=== PATIENT | female | born 1955 | race Caucasian/White ===

== ENCOUNTER 2018-08-07 10:29 | Emergency (ER) | payer BC ==
[2018-08-07] MEDS ORDERED: Ketorolac INJ* 30 MG/ML 1 ML VIAL IM ONE (10:49)
[2018-08-07] MEDS ORDERED: Cyclobenzaprine TAB* 10 MG PO ONE (10:49)
--- NOTE | 2018-08-07 10:55 | ED ---
Back Pain - HPI Summary HPI Summary: 62 year old female presents with back pain since this morning. She states she is trying to lift a cabinet and felt a pop in her back. She did have back pain last month. No urinary symptoms. No fevers. No loss of bladder or bowel or saddle anaesthesia. No pain or weakness into her legs. No numbness or tingling. she was able to ambulate into ED with a steady gait. no abdominal pain. no chest pain or SOB. Hasn't taking anything for pain. - History of Current Complaint Chief Complaint: EDBackInjuryPain Stated Complaint: BACK PAIN/HEARD SNAP Time Seen by Provider: 08/07/18 10:43 Pain Intensity: 8 - Allergies/Home Medications Allergies/Adverse Reactions: Allergies Allergy/AdvReac Type Severity Reaction Status Date / Time No Known Allergies Allergy Verified 08/07/18 10:37 PMH/Surg Hx/FS Hx/Imm Hx Endocrine/Hematology History: Reports: Hx Diabetes Cardiovascular History: Reports: Hx Hypertension Respiratory History: Reports: Hx Chronic Obstructive Pulmonary Disease (COPD) Musculoskeletal History: Denies: Hx Osteoporosis - Immunization History Date of Influenza Vaccine: this season Infectious Disease History: No Infectious Disease History: Denies: Traveled Outside the [place] in Last 30 Days - Family History Known Family History: Positive: Diabetes Family History: No FHx of breast cancer. - Social History Alcohol Use: Occasionally Substance Use Type: Reports: Marijuana Smoking Status (MU): Heavy Every Day Tobacco Smoker Review of Systems Negative: Fever Negative: Chest Pain Negative: Shortness Of Breath Positive: Myalgia - back pain All Other Systems Reviewed And Are Negative: Yes Physical Exam Triage Information Reviewed: Yes Vital Signs On Initial Exam: Initial Vitals Temp Pulse Resp BP Pulse Ox 97.6 F 62 18 160/63 98 08/07/18 10:32 08/07/18 10:32 08/07/18 10:32 08/07/18 10:32 08/07/18 10:32 Vital Signs Reviewed: Yes Appearance: Positive: Well-Appearing Skin: Positive: Warm, Dry Head/Face: Positive: Normal Head/Face Inspection Eyes: Positive: Normal, Conjunctiva Clear ENT: Positive: Pharynx normal Respiratory/Lung Sounds: Positive: Clear to Auscultation, Breath Sounds Present Cardiovascular: Positive: Normal, RRR Abdomen Description: Positive: Nontender, Soft Bowel Sounds: Positive: Present Musculoskeletal: Positive: Limited @ - back, Other - tenderness lower back, neg SLR, sensation grossly intact, good pulses Neurological: Positive: Normal Gait, Babinski Bilateral - normal Psychiatric: Positive: Normal Diagnostics - Vital Signs Vital Signs Temp Pulse Resp BP Pulse Ox 08/07/18 10:32 97.6 F 62 18 160/63 98 - Laboratory Lab Statement: Any lab studies that have been ordered have been reviewed, and results considered in the medical decision making process. - CT back CT Interpretation: Positive (See Comments) - IMPRESSION: OSTEOPENIA WITH COMPRESSION FRACTURE OF T12, LIKELY ACUTE/SUBACUTE, WITHOUT OSSEOUS RETROPULSION. CT Interpretation Completed By: Radiologist Re-Evaluation - Re-Evaluation First Eval Re-Evaluation Time: 11:52 Change: Improved Comment: pain has improved Back Pain Course/Dx - Course Course Of Treatment: 62 year old female presents with back pain since this morning. She states she is trying to lift a cabinet and felt a pop in her back. She did have back pain last month. No urinary symptoms. No fevers. No loss of bladder or bowel or saddle anaesthesia. No pain or weakness into her legs. No numbness or tingling. she was able to ambulate into ED with a steady gait. Hasn't taking anything for pain. On exam tenderness lower back. Neurovascular intact. CT shows acute/subacute compression fracture of T12 without retropulsion. this is not were patient pain is as it located on L3-L5. discussed with patient and she did have pain here a month ago. discussed should follow up with primary about osteopenia and back pain. gave referral to neurosurgery as can follow up outpatient will neurosurgery as no neuro symptoms and no retropulsion. will place on short course of muscle relaxers. patient understand and agrees with plan. - Diagnoses Differential Diagnosis/HQI/PQRI: Positive: Fracture, Herniated Disc, Strain Provider Diagnoses: Back pain, Compression fracture of T12 vertebra Discharge - Sign-Out/Discharge Documenting (check all that apply): Patient Departure - Discharge Plan Condition: Good Disposition: HOME Prescriptions: Cyclobenzaprine TAB* [Flexeril 10 MG TAB*] 10 mg PO TID PRN #21 tab PRN Reason: Pain Patient Education Materials: Back Pain (ED) Forms: *Work Release Referrals: Alex Monroe MD [Primary Care Provider] - Adeel Kaplan MD [Medical Doctor] - Additional Instructions: Take muscle relaxers three times a day Use ibuprofen or Tylenol for pain every 6 hours ice/heat area, move as much as possible Follow up with primary within 5 days follow up with neurosurgery Return to ED if develop any new or worsening symptoms - Billing Disposition and Condition Condition: GOOD Disposition: Home
--- NOTE | 2018-08-07 11:38 | RAD ---
HISTORY: lower back pain COMPARISONS: CT of the chest dated January 31, 2017 TECHNIQUE: Multiple contiguous axial CT scans were obtained of the lumbar spine without intravenous contrast, with coronal and sagittal multiplanar reformations. FINDINGS: SPINAL CANAL: Evaluation of the central canal is limited on CT technique; however, there is no obvious canalicular mass or epidural hemorrhage. ALIGNMENT: The alignment is normal. VERTEBRAL BODIES: There is diffuse osteopenia. There is a compression deformity of T12 with approximately 50% loss of vertebral body height. There is no significant osseous retropulsion. This is new from the hip September 11, 2017 examination and is likely acute/subacute. JOINTS: There is mild facet osteoarthritis, more pronounced at L5-S1. MUSCULATURE: Unremarkable INTERVERTEBRAL DISCS: There is diffuse loss of intervertebral disc height throughout the spine. AXIAL IMAGES: On axial images, there is no osseous neural foraminal narrowing or central canal stenosis. SOFT TISSUES: The visualized soft tissues of the abdomen are unremarkable. OTHER: None IMPRESSION: OSTEOPENIA WITH COMPRESSION FRACTURE OF T12, LIKELY ACUTE/SUBACUTE, WITHOUT OSSEOUS RETROPULSION.
[2018-08-07] MEDS ORDERED: oxyCODONE/Acetamin 5/325 MG* TAB PO ONE (11:48)
[2018-08-07 12:13] VITALS: BP 153/91
== END 2018-08-07 12:11 | disposition home or self-care (01) ==
LOC: ED 10:29
DX: S22.080A Wedge compression fracture of T11-T12 vertebra, initial encounter for closed fracture (principal); X50.0XXA Overexertion from strenuous movement or load, initial encounter; Y92.9 Unspecified place or not applicable; Z72.0 Tobacco use; E11.9 Type 2 diabetes mellitus without complications; I10 Essential (primary) hypertension; J44.9 Chronic obstructive pulmonary disease, unspecified; M85.88 Other specified disorders of bone density and structure, other site
CPT/HCPCS: 72131; 96372; 99282; A9270-GY; J1885

== ENCOUNTER 2018-08-09 09:00 | Emergency (ER) | payer BC ==
--- NOTE | 2018-08-09 09:50 | ED ---
Back Pain - HPI Summary HPI Summary: Pt. is a 62 y.o female who presents to the ER for ongoing low back pain x 2 days. Pt. was seen in ED 2 days ago after developing low back pain while moving a heavy piece of furniture. She had a ct scan of lumbar spine which showed old vs new t compression fx. Pt.'s pain is low lumbar. Pt. states she has been talking motrin and flexeril with no improvement. SHe denies radicular pain into legs, numbness, tingling, or weakness. Denies bowel or bladder incontinence or retention. Sxs are mild in severity. Movement makes sxs worse. Nothing makes sxs better. - History of Current Complaint Chief Complaint: EDBackInjuryPain Stated Complaint: BACK PAIN Time Seen by Provider: 08/09/18 09:32 Hx Obtained From: Patient Pain Intensity: 8 - Allergies/Home Medications Allergies/Adverse Reactions: Allergies Allergy/AdvReac Type Severity Reaction Status Date / Time No Known Allergies Allergy Verified 08/09/18 09:07 PMH/Surg Hx/FS Hx/Imm Hx Previously Healthy: Yes Endocrine/Hematology History: Reports: Hx Diabetes Cardiovascular History: Reports: Hx Hypertension Respiratory History: Reports: Hx Chronic Obstructive Pulmonary Disease (COPD) Musculoskeletal History: Denies: Hx Osteoporosis - Immunization History Date of Influenza Vaccine: this season Infectious Disease History: No Infectious Disease History: Denies: Traveled Outside the [place] in Last 30 Days - Family History Known Family History: Positive: Diabetes Family History: No FHx of breast cancer. - Social History Occupation: Employed Full-time Lives: Alone Alcohol Use: Occasionally Substance Use Type: Reports: Marijuana Smoking Status (MU): Heavy Every Day Tobacco Smoker Review of Systems Constitutional: Negative Cardiovascular: Negative Respiratory: Negative Genitourinary: Negative Positive: Other - low back pain Neurological: Negative All Other Systems Reviewed And Are Negative: Yes Physical Exam Triage Information Reviewed: Yes Vital Signs On Initial Exam: Initial Vitals Temp Pulse Resp BP Pulse Ox 97.3 F 83 16 131/101 98 08/09/18 09:03 08/09/18 09:03 08/09/18 09:03 08/09/18 09:03 08/09/18 09:03 Vital Signs Reviewed: Yes Appearance: Positive: Well-Appearing - Pt. sitting on side on side of bed in NAD > Skin: Positive: Warm, Dry Head/Face: Positive: Normal Head/Face Inspection Eyes: Positive: Normal, EOMI Neck: Positive: Supple Musculoskeletal: Positive: Other - 5/5 strength in bilateral LEs with flexion and doriflexion 2/4 DTR. No reproducible back pain on palpation. Ambulating without difficulty. Neurological: Positive: Normal, CN Intact II-III Psychiatric: Positive: Affect/Mood Appropriate Diagnostics - Vital Signs Vital Signs Temp Pulse Resp BP Pulse Ox 08/09/18 09:03 97.3 F 83 16 131/101 98 - Laboratory Lab Statement: Any lab studies that have been ordered have been reviewed, and results considered in the medical decision making process. Back Pain Course/Dx - Course Course Of Treatment: Pt. presenting for ongoing low back pain after injury. She has no neuro deficits or evidence of cauda equina syndrome. [employer] reviewed and no red flags noted. WIll rx a few days of lortab. To heat back and avoid heavy lifting. Can continue other med as directed. To call PCP today for a f.u apt. TO return to ER if sxs change or worsen. - Diagnoses Differential Diagnosis/HQI/PQRI: Positive: Aneurysm, Arthritis, Cauda Equina Syndrome, Compressive Cord Syndrome, Epidural Abscess, Herniated Disc, Strain, Sprain Provider Diagnoses: Lumbar strain Discharge - Sign-Out/Discharge Documenting (check all that apply): Patient Departure - Discharge Plan Condition: Good Disposition: HOME Prescriptions: Hydrocodone/Acetaminophen [Hydrocodone-Acetamin 5-325 mg] 1 each PO Q6H #12 tablet MDD 4tablets Patient Education Materials: Low Back Strain (ED) Referrals: Alex Monroe MD [Primary Care Provider] - Additional Instructions: Schedule a follow up appointment with PCP for Monday Apply warm compresses to back Pain medication as directed Can continue ibuprofen and flexeril as directed Avoid heavy lifting Return to ER for increased pain, numbness/tingling/weakness in legs, or loss of bowel or bladder function - Billing Disposition and Condition Condition: GOOD Disposition: Home
[2018-08-09 10:01] VITALS: BP 148/88
== END 2018-08-09 10:00 | disposition home or self-care (01) ==
LOC: ED 09:00
DX: S39.012D Strain of muscle, fascia and tendon of lower back, subsequent encounter (principal); X50.0XXD Overexertion from strenuous movement or load, subsequent encounter; F17.200 Nicotine dependence, unspecified, uncomplicated
CPT/HCPCS: 99282

== ENCOUNTER 2018-10-07 10:29 | Emergency (ER) | payer BC ==
--- NOTE | 2018-10-07 10:48 | ED ---
Neck Pain - HPI Summary HPI Summary: 62 yo F with left neck pain radiating to left trapezius since 10/04/18 after lifting and positioning a pt at [employer] at work. Did not feel a pop or snap. No numbness or arm weakness. No URI sxs, no LOPEZ, dizziness, or fever. No prior neck injury or problem. Tried ibuprofen and flexeril without relief. Has used oxycodone in the past for back pain. Pt took a bus to get here. - History of Current Complaint Chief Complaint: EDNeckComplaint Stated Complaint: NECK PAIN Time Seen by Provider: 10/07/18 10:45 Hx Obtained From: Patient Onset/Duration Of Injury/Symptoms: Days - 3 Mechanism Of Injury: Other - lifting/positioning/ assisting heavy resident at [employer] at work Timing: Constant Onset/Duration: Sudden Onset, Started days ago, Worse Since - this am Severity Initially: Moderate Severity Currently: Moderate Pain Intensity: 4 Pain Scale Used: 0-10 Numeric Location: Discrete At: - left lower neck and left trapezius Character: Sharp Aggravating Factors: Movement Alleviating Factors: Nothing Associated Signs & Symptoms: Negative: Swelling, Redness, Bruising, Fever, Nuchal Rigity, Weakness, Headache, Paresthesia - Allergies/Home Medications Allergies/Adverse Reactions: Allergies Allergy/AdvReac Type Severity Reaction Status Date / Time No Known Allergies Allergy Verified 10/07/18 10:59 Home Medications: Home Medications Cholecalciferol TAB* [Vitamin D TAB*] 1,000 unit PO DAILY 10/07/18 [History Confirmed 10/07/18] PMH/Surg Hx/FS Hx/Imm Hx Previously Healthy: No Endocrine/Hematology History: Reports: Hx Diabetes Cardiovascular History: Reports: Hx Hypertension Respiratory History: Reports: Hx Chronic Obstructive Pulmonary Disease (COPD) GI History: Reports: Hx Gastroesophageal Reflux Disease Musculoskeletal History: Denies: Hx Osteoporosis - Surgical History Surgery Procedure, Year, and Place: None Infectious Disease History: No Infectious Disease History: Denies: Traveled Outside the [place] in Last 30 Days - Family History Known Family History: Positive: Diabetes Family History: No FHx of breast cancer. - Social History Occupation: Employed Full-time Alcohol Use: Occasionally Substance Use Type: Reports: Marijuana Smoking Status (MU): Light Every Day Tobacco Smoker Review of Systems Constitutional: Negative Cardiovascular: Negative Respiratory: Negative Gastrointestinal: Negative Positive: no symptoms reported Positive: Arthralgia, Myalgia Skin: Negative Neurological: Negative Psychological: Normal All Other Systems Reviewed And Are Negative: Yes Physical Exam Triage Information Reviewed: Yes Vital Signs On Initial Exam: Initial Vitals Temp Pulse Resp BP Pulse Ox 98.7 F 92 16 172/84 99 10/07/18 10:39 10/07/18 10:39 10/07/18 10:39 10/07/18 10:39 10/07/18 10:39 Vital Signs Reviewed: Yes Appearance: Positive: Well-Appearing, Well-Nourished, Pain Distress Skin: Positive: Warm, Skin Color Reflects Adequate Perfusion, Dry Head/Face: Positive: Normal Head/Face Inspection Eyes: Positive: EOMI, Conjunctiva Clear ENT: Positive: Normal ENT inspection, Hearing grossly normal. Negative: Nasal congestion, Nasal drainage Neck: Positive: Supple, Nontender - no spinal tenderness, tenderness left paraspinous and left trapezius, No Lymphadenopathy Respiratory/Lung Sounds: Positive: Clear to Auscultation, Breath Sounds Present Cardiovascular: Positive: RRR, Pulses are Symmetrical in both Upper and Lower Extremities Musculoskeletal: Positive: Strength/ROM Intact, Pain @ - left cervical paraspinous and left trapezius Neurological: Positive: Sensory/Motor Intact, Alert, Oriented to Person Place, Time, NV Bundle Intact Distally, Facial Symmetry, Speech Normal. Negative: Facial Droop, Focal Deficit @, Slurred Speech, Pronator Drift Present Psychiatric: Positive: Normal - [place] Coma Scale Best Eye Response: 4 - Spontaneous Best Motor Response: 6 - Obeys Commands Best Verbal Response: 5 - Oriented Coma Scale Total: 15 Diagnostics - Vital Signs Vital Signs Temp Pulse Resp BP Pulse Ox 10/07/18 10:39 98.7 F 92 16 172/84 99 - Laboratory Lab Statement: Any lab studies that have been ordered have been reviewed, and results considered in the medical decision making process. - CT CT cervical spine CT Interpretation Completed By: Radiologist Summary of CT Findings: IMPRESSION: 1. DEGENERATIVE DISC DISEASE AND OSTEOARTHRITIS. 2. THERE IS MILD NARROWING OF THE CENTRAL CANAL AT C6-C7. 3. THERE IS MULTILEVEL NEUROFORAMINAL NARROWING DESCRIBED ABOVE. 4. 1.9 CM LEFT THYROID NODULE. THE [employer] INCIDENTAL THYROID. FINDINGS COMMITTEE RECOMMENDS THYROID ULTRASOUND FOR INCIDENTAL NONSUSPICIOUS THYROID. NODULES GREATER THAN OR EQUAL TO 1.5 CM IN SIZE FOR THE PATIENT OVER THE AGE OF 35. Re-Evaluation - Re-Evaluation First Eval Re-Evaluation Time: 12:00 Change: Improved Comment: Pain is improved after percocet. Agrees to discharge. Declines work release. Notified of need for thyroid ultrasound due to thyroid nodule. Given copy of CT report. Neck Course/Dx - Diagnoses Differential Dx/HQI/PQRI: Positive: Arthritis, Neoplasm, Sprain, Strain, Torticollis Provider Diagnoses: Neuroforaminal stenosis of cervical spine, Osteoarthritis cervical spine, Cervical strain, acute, Thyroid nodule, Hypertension, poor control Discharge - Sign-Out/Discharge Documenting (check all that apply): Patient Departure - home - Discharge Plan Condition: Stable Disposition: HOME Prescriptions: Cyclobenzaprine TAB* [Flexeril 10 MG TAB*] 10 mg PO TID PRN #20 tab PRN Reason: Pain oxyCODONE/Acetamin 5/325 MG* [Percocet 5/325 TAB*] 1 tab PO Q4H PRN #18 tab MDD 6 PRN Reason: Pain Patient Education Materials: Cervical Strain (ED), Thyroid Nodules (ED), Acute Neck Pain (ED) Referrals: Alex Monroe MD [Primary Care Provider] - 2 Days Additional Instructions: We have given you a copy of the CT of your neck. It does show cause for your pain, but no acute abnormality that needs emergency treatment. The CT also showed a thyroid nodule. It is recommended that you have an ultrasound of your thyroid to further evaluate this. Dr. Monroe will need to order this for you in the next 1-2 weeks, and do any further evaluation necessary of the thyroid nodule. You were given percocet 2 tabs with some relief of your pain. Dr. Chester has prescribed percocet and flexeril that you may continue to use for the pain. The percocet is at [facility] and the flexeril is at [facility] , at your request. Return to the ER if you have new or worsening symptoms. - Billing Disposition and Condition Condition: STABLE Disposition: Home
[2018-10-07] MEDS ORDERED: oxyCODONE/Acetamin 5/325 MG* TAB PO ONE (11:05)
[2018-10-07] MEDS ORDERED: Lidocaine PATCH 5%* 1 PATCH ONE (11:20)
[2018-10-07] MEDS ORDERED: Lidocaine PATCH 5%* 1 PATCH TRANSDERM SCH (12:00)
[2018-10-07 12:31] VITALS: BP 138/93
[2018-10-07] MEDS ORDERED: Lidocaine Patch REMOVE* 1 NOTE MISC SCH (21:00)
== END 2018-10-07 12:30 | disposition home or self-care (01) ==
LOC: ED 10:29
DX: S16.1XXA Strain of muscle, fascia and tendon at neck level, initial encounter (principal); M48.02 Spinal stenosis, cervical region; I10 Essential (primary) hypertension; E04.1 Nontoxic single thyroid nodule; E11.9 Type 2 diabetes mellitus without complications; J44.9 Chronic obstructive pulmonary disease, unspecified; X50.9XXA Other and unspecified overexertion or strenuous movements or postures, initial encounter; Y93.F2 Activity, caregiving, lifting; Y92.89 Other specified places as the place of occurrence of the external cause; Y99.0 Civilian activity done for income or pay; K21.9 Gastro-esophageal reflux disease without esophagitis; Z72.0 Tobacco use
CPT/HCPCS: 72125; 99282; A9270-GY

== ENCOUNTER 2022-11-22 10:58 | Inpatient (IN) ==
[2022-11-22 12:24] LABS: ABS Basophils 0.1 10^3/ul (0-0.2); ABS Eosinophils 0.1 10^3/ul (0-0.6); ABS Lymphocytes 2.4 10^3/ul (1.0-4.8); ABS Monocytes 0.6 10^3/ul (0-0.8); ABS Neutrophils 6.1 10^3/ul (1.5-7.7); Eosinophil % 1.2 %; Hematocrit 39 % (35-47); Lymphocyte % 26.1 %; Mean Corpuscular HGB Conc 34 g/dL (31-36); Mean Corpuscular Hemoglobin 31 pg (27-31); Mean Corpuscular Volume 91 fL (80-97); Mean Platelet Volume 8.4 fL (7.4-10.4); Nucleated Red Blood Cells % 0.1; Platelet Count 322 10^3/uL (150-450); Red Blood Count 4.24 10^6 /uL (3.70-4.87); Red Cell Distribution Width 15 % (10-15); White Blood Count 9.3 10^3/uL (3.5-10.8)
[2022-11-22 12:51] LABS: Albumin/Globulin Ratio 1.9 (1-3); Calcium 9.4 mg/dL (8.6-10.3); Creatinine, Serum 0.83 mg/dL (0.51-0.95); Globulin 2.1 g/dL (2-4); Total Bilirubin 0.5 mg/dL (0.2-1.0); Total Protein 6.1 g/dL (6.4-8.9); eGFR CKD-EPI 77.7 (>60)
[2022-11-22 13:02] LABS: TSH Ultra Thyroid Stim Horm 1.93 mcIU/mL (0.34-5.60)
[2022-11-22] MEDS ORDERED: Dextrose 50% Syringe 50 ml 25 GM/50 ML SYRINGE IV PUSH PRN (14:55)
[2022-11-22] MEDS ORDERED: Albuterol HFA INHALER 8 gm MDI INH PRN (14:59)
[2022-11-22 18:55] LABS: Urine Appearance Clear; Urine Bilirubin Negative (Negative); Urine Blood Negative (Negative); Urine Color Yellow; Urine Glucose Negative (Negative); Urine Ketones Negative (Negative); Urine Nitrite Negative (Negative); Urine Protein Negative (Negative); Urine Specific Gravity 1.006 (1.002-1.030); Urine Urobilinogen Negative (Negative)
[2022-11-22] MEDS ORDERED: Enoxaparin 40 MG/0.4 ML SYR SUBCUT SCH (19:00)
[2022-11-22 19:20] LABS: Urine Bacteria Absent (Absent); Urine Red Blood Cell Trace(0-2/hpf) (Absent); Urine Squamous Epithelial Cell Present (Absent); Urine White Blood Cell Trace(0-5/hpf) (Absent)
[2022-11-22] MEDS: Nicotine PATCH 14 MG/24 HR PATCH TRANSDERM SCH (19:56)
[2022-11-22] MEDS ORDERED: Iodixanol (CONTRAST) 320 MG/ML 100 ML SDV IV ONE (20:20)
[2022-11-22] MEDS ORDERED: Insulin GLARGINE 100 un/ml 10 ml VIAL SUBCUT SCH (21:00)
[2022-11-23] MEDS ORDERED: Tiotropium Brom/Olodaterol MDI (ACUTE) INH SCH (09:00)
[2022-11-23] MEDS: Nicotine PATCH 14 MG/24 HR PATCH TRANSDERM SCH ×2 (09:04→09:06)
[2022-11-23] MEDS ORDERED: Aspirin EC 81 mg TAB.EC (enteric coated) PO SCH (11:00)
[2022-11-23 11:58] VITALS: BP 125/53
[2022-11-23] MEDS ORDERED: Gadoteridol (CONTRAST) 279.3 MG/ML 10 ML IV ONE (13:01)
== END 2022-11-23 16:55 | disposition home or self-care (01) | DRG 45 ==
LOC: EDHOLD 10:58 → ED 10:58 → SUATTDRO 14:35 → EDHOLD 16:57 → MEDTELE 17:24
PROVIDERS: ADMIT Internal Medicine; ATTEND Hospitalist